=== PATIENT | male | born 1950 | race Two or more races ===

== ENCOUNTER 2020-09-19 09:20 | Inpatient (IN) | payer MEDICARE ==
[~2020-09-19] VITALS: Ht 157.5 cm; Wt 81.0 kg
[2020-09-19] MEDS ORDERED: SODIUM CHLORIDE 0.9% 500 ML IV ONE (10:30)
[2020-09-19] MEDS ORDERED: ACETAMINOPHEN 500 MG TAB PO ONE (11:00)
[2020-09-19 11:13] LABS: Calcium 8.9 mg/dL (8.5-10.1); Potassium 4.3 mmol/L (3.5-5.1)
[2020-09-19 11:23] LABS: BUN/Creatinine Ratio 17.4; CRP High Sensitivity 1.5 mg/dL (< 0.3); INR 0.97 (0.9-1.15); Partial Thromboplastin Time 29.2 sec (23.0-31.2)
[2020-09-19 11:52] LABS: Basophils # (auto) 0 10 ^3/uL (0-0.2); Basophils % (auto) 0.8 % (0.0-2.0); Eosinophils # (auto) 0 10 ^3/uL (0-0.8); Eosinophils % (auto) 0.2 % (0.0-7.0); Hematocrit 43.3 % (41.0-53.0); Lymphocytes # (auto) 0.2 10 ^3/uL (0.4-5.4); Lymphocytes % (auto) 6.6 % (10.0-50.0); Mean Corpuscular Hemoglobin 30.4 pg (28.0-32.0); Mean Corpuscular Hgb Conc. 36.9 g/dL (32.0-36.0); Mean Corpuscular Volume 82.5 fL (80.0-100.0); Monocytes # (auto) 0.5 10 ^3/uL (0-1.3); Monocytes % (auto) 13.2 % (0.0-12.0); Neutrophils # (auto) 2.9 10 ^3/uL (1.6-8.6); Neutrophils % (auto) 79.2 % (37.0-80.0); Nucleated Red Blood Cells % 0.1 %; Red Blood Cells 5.25 10^6/uL (4.5-5.90); Red Cell Distribution Width 13.2 % (11.8-14.3); White Blood Cell 3.7 10^3/uL (4.4-10.8)
[2020-09-19] MEDS ORDERED: REMDESIVIR PER PHARMACY 0 ML IV SCH (12:30)
[2020-09-19] MEDS ORDERED: ERGOCALCIFEROL 50,000 UNIT(1.25MG) CAP PO SCH ×2 (12:30)
[2020-09-19] MEDS ORDERED: DexAMETHasone SOD PHOS 10MG/1ML VIAL INJ IV ONE (12:30)
[2020-09-19] MEDS ORDERED: ZINC SULFATE 220mg CAP or TAB PO ONE (12:30)
[2020-09-19] MEDS ORDERED: BUDESONIDE (INHALATION) 0.5 MG/2 ML NEB NEB ONE (12:30)
[2020-09-19] MEDS ORDERED: MORPHINE SULFATE INJECTION 2 MG/ML SYRG IV PRN (12:30)
[2020-09-19] MEDS ORDERED: NITROGLYCERIN 0.4 MG SL TAB SL PRN (12:30)
[2020-09-19] MEDS ORDERED: ACETAMINOPHEN 500 MG TAB PO PRN (12:30)
[2020-09-19] MEDS ORDERED: ONDANSETRON HCL 4 MG/2 ML VIAL IV PRN (12:45)
[2020-09-19 13:11] VITALS: BP 114/63
[2020-09-19] MEDS ORDERED: PANT40TA2 PO (14:46)
[2020-09-19] MEDS ORDERED: ERGO1CAP23 PO (14:46)
[2020-09-19] MEDS ORDERED: AZIT250T8 PO (14:46)
[2020-09-19] MEDS ORDERED: DEXA2TAB PO (14:46)
[2020-09-19 16:00] VITALS: BP 127/78
[2020-09-19] MEDS ORDERED: REMDESIVIR 200 MG in NS 210ml LOADING DOSE ADULT IV ONE (17:00)
[2020-09-19 17:30] VITALS: BP 129/79
[2020-09-19 18:15] VITALS: BP 148/78
[2020-09-19] MEDS ORDERED: TELM1TAB37 PO (19:31)
[2020-09-19] MEDS ORDERED: ASPI81CH43 PO (19:32)
[2020-09-19] MEDS: ASCORBIC ACID 500 MG TAB PO SCH (21:11)
[2020-09-19] MEDS: FAMOTIDINE (10MG/ML) 2ML VL IV SCH (21:11)
[2020-09-19] MEDS ORDERED: clonazePAM 0.5 MG TAB PO ONE (22:00)
[2020-09-19] MEDS ORDERED: BUDESONIDE (INHALATION) 0.5 MG/2 ML NEB NEB SCH (22:00)
[2020-09-20 00:28] VITALS: BP 111/51
[2020-09-20 06:39] LABS: Albumin 3.1 g/dL (3.4-5.0); Calcium 8.2 mg/dL (8.5-10.1); Potassium 4.1 mmol/L (3.5-5.1)
[2020-09-20 06:45] LABS: Bilirubin, Total 1.1 mg/dL (0.2-1.0); Total Protein 6.4 g/dL (6.4-8.2)
[2020-09-20 07:02] LABS: Basophils # (auto) 0 10 ^3/uL (0-0.2); Basophils % (auto) 0.1 % (0.0-2.0); Eosinophils # (auto) 0 10 ^3/uL (0-0.8); Lymphocytes # (auto) 0.5 10 ^3/uL (0.4-5.4); Monocytes # (auto) 0.6 10 ^3/uL (0-1.3); Monocytes % (auto) 10.2 % (0.0-12.0); Neutrophils # (auto) 4.4 10 ^3/uL (1.6-8.6)
[2020-09-20 07:04] LABS: Hematocrit 38.6 % (41.0-53.0); Hemoglobin 14.5 g/dL (13.5-17.5); Lymphocytes % (auto) 9.9 % (10.0-50.0); Mean Corpuscular Hgb Conc. 37.6 g/dL (32.0-36.0); Mean Corpuscular Volume 82.3 fL (80.0-100.0); Neutrophils % (auto) 79.8 % (37.0-80.0); Nucleated Red Blood Cells % 0.2 %; Red Blood Cells 4.69 10^6/uL (4.5-5.90); Red Cell Distribution Width 12.8 % (11.8-14.3); White Blood Cell 5.6 10^3/uL (4.4-10.8)
[2020-09-20 08:00] VITALS: BP 136/78
[2020-09-20] MEDS: FAMOTIDINE (10MG/ML) 2ML VL IV SCH (08:20)
[2020-09-20] MEDS: ASCORBIC ACID 500 MG TAB PO SCH (08:21)
[2020-09-20 09:05] LABS: Urine Bacteria NONE SEEN /hpf (None Seen); Urine Blood Negative /uL (Negative); Urine WBC 1 /hpf (0 - 3)
[2020-09-20] MEDS ORDERED: ZINC SULFATE 220mg CAP or TAB PO SCH (10:00)
[2020-09-20] MEDS ORDERED: DexAMETHasone SOD PHOS 10MG/1ML VIAL INJ IV SCH (10:00)
[2020-09-20] MEDS ORDERED: CHOLECALCIFEROL (VITD3) 2,000 UNIT CAP/TAB PO SCH (10:00)
[2020-09-20] MEDS ORDERED: REMDESIVIR 100 MG in SODIUM CHL 0.9% 250 ML IV SCH (15:00)
== END 2020-09-20 12:25 | disposition home or self-care (01) | DRG 871 ==
LOC: ER 09:20 → TELE-WESTW 09:21
PROVIDERS: ADMIT Internal Medicine; ATTEND Internal Medicine
PROC: XW033E5 Introduction of Remdesivir Anti-infective into Peripheral Vein, Percutaneous Approach, New Technology Group 5 (ICD-10-PCS; principal; 2020-09-19)
DX: A41.89 Other specified sepsis (principal); U07.1 COVID-19; J12.82 Pneumonia due to coronavirus disease 2019; E55.9 Vitamin D deficiency, unspecified; E56.0 Deficiency of vitamin E; I10 Essential (primary) hypertension; J45.909 Unspecified asthma, uncomplicated; Z87.01 Personal history of pneumonia (recurrent)
CPT/HCPCS: 36415; 71250; 80053; 81001; 82306; 82728; 83615; 84443; 84484; 85025; 85379; 85610; 85730; 86141; 96360; G0378; J1100; J3490

== ENCOUNTER → 2020-09-21 | Outpatient (CLI) | payer MEDICARE ==
[~2020-09-21] VITALS: Ht 30.5 cm; Wt 0.5 kg
[~2020-09-21] MED LIST: ASPI81CH43 PO; AZIT250T8 PO; DEXA2TAB8 PO; ERGO1CAP23 PO; PANT40TA2 PO; REMDESIVIR 100 MG in SODIUM CHL 0.9% 250 ML IV ONE; TELM1TAB37 PO
[2020-09-21 08:52] VITALS: BP 142/82
[2020-09-21 09:07] VITALS: BP 140/81
[2020-09-21 10:00] VITALS: BP 140/82
== END | disposition home or self-care (01) ==
LOC: ER 08:47
PROVIDERS: ATTEND Internal Medicine
DX: U07.1 COVID-19 (principal); I10 Essential (primary) hypertension; J45.909 Unspecified asthma, uncomplicated

== ENCOUNTER → 2020-09-22 | Outpatient (CLI) | payer MEDICARE ==
[2020-09-22 09:45] VITALS: BP 132/77
[2020-09-22 10:30] VITALS: BP 124/78
== END | disposition home or self-care (01) ==
LOC: ER 09:28
PROVIDERS: ATTEND Internal Medicine
DX: U07.1 COVID-19 (principal); I10 Essential (primary) hypertension; J45.909 Unspecified asthma, uncomplicated; J18.9 Pneumonia, unspecified organism

== ENCOUNTER → 2020-10-16 | Outpatient (CLI) | payer MEDICARE ==
[~2020-10-16] MED LIST changes: +DEXA2TAB PO; -DEXA2TAB8 PO; -REMDESIVIR 100 MG in SODIUM CHL 0.9% 250 ML IV ONE
[2020-10-16 10:33] LABS: Urine Bacteria NONE SEEN /hpf (None Seen); Urine Blood Negative /uL (Negative); Urine Mucus FEW (None Seen); Urine Specific Gravity 1.018 (1.001-1.035); Urine WBC 1 /hpf (0 - 3)
== END | disposition home or self-care (01) ==
LOC: LAB 10:20
PROVIDERS: ATTEND Internal Medicine Cardiovascular Disease
DX: Z12.5 Encounter for screening for malignant neoplasm of prostate (principal); R30.0 Dysuria
CPT/HCPCS: 81001; 84153